=== PATIENT | female | born 1990 | race Caucasian/White ===

== ENCOUNTER 2023-05-31 19:57 | Emergency (ER) | payer OTHER ==
[2023-05-31 20:15] VITALS: RESP 18; BMI 29.8
[2023-05-31] MEDS ORDERED: MAGNESIUM 2GM/50ML STERILE WATER IVPB IVPB ONE (21:25)
[2023-05-31] MEDS ORDERED: MAGNESIUM SULF 50% (8.12 MEQ/2 ML-1 GM VIAL) IVPB ONE (21:25)
[2023-05-31] MEDS ORDERED: SODIUM CHLORIDE 0.9% 500 ML INFUS.BAG IV ONE (21:25)
[2023-05-31] MEDS ORDERED: FAMOTIDINE 20 MG/50 ML IVPB 20 MG/50 ML MG IVPB ONE ×2 (21:25→23:38)
[2023-05-31 22:05] LABS: BASO % 0.5 % (0-2.0); HEMATOCRIT 43.2 % (32.4-45.2); HEMOGLOBIN 15.2 GM/dL (10.7-15.3); LYMPH % 15.4 % (8-40); MCH 31.4 pg (25.7-33.7); MCHC 35.1 g/dl (32.0-36.0); MEAN CELL VOLUME 89.4 fl (80-96); MEAN PLT VOLUME 8.1 fl (7.5-11.1); MONO % 4.6 % (3.8-10.2); NEUT % 79.5 % (42.8-82.8); PLATELET COUNT 310 10^3/uL (134-434); RBC 4.83 M/mm3 (3.60-5.2); WHITE BLOOD COUNT 10.6 K/mm3 (4.0-10.0)
[2023-05-31 22:15] LABS: POTASSIUM 3.7 mmol/L (3.5-5.1)
[2023-05-31] MEDS ORDERED: MAGNESIUM SULFATE IN WATER 2 GM/50 ML IVPB IVPB ONE (22:15)
[2023-05-31 22:17] LABS: CALCIUM 9.9 mg/dL (8.5-10.1)
[2023-05-31 22:19] LABS: ALBUMIN 4.5 g/dl (3.4-5.0); BLOOD UREA NITROGEN 15.6 mg/dL (7-18)
[2023-05-31 22:20] LABS: CREATININE 1.1 mg/dL (0.55-1.3)
[2023-05-31 22:22] LABS: BILIRUBIN,TOTAL 1.3 mg/dL (0.2-1); TOT PROT 8.4 g/dl (6.4-8.2)
[2023-05-31] MEDS ORDERED: KETOROLAC TROMETHAMINE 30 MG/1 ML VIAL IVPUSH ONE (22:43)
[2023-05-31] MEDS ORDERED: KETOROLAC TROMETHAMINE 15 MG/ML VIAL ONE ×2 (23:08→23:09)
[2023-05-31 23:42] LABS: HCG,QUALITATIVE URINE Negative
[2023-05-31 23:59] LABS: EPI CELLS >36 /uL (0-25.1); HYALINE CASTS 4 /uL (0-3.1); URINE APPEARANCE CLOUDY; URINE BACTERIA >9,000 /uL (0-1359); URINE BILIRUBIN NEGATIVE (NEGATIVE); URINE COLOR YELLOW; URINE GLUCOSE (UA) NEGATIVE (NEGATIVE); URINE KETONE 4+ (NEGATIVE); URINE LEUK ESTERASE TRACE (NEGATIVE); URINE NITRITE POSITIVE (NEGATIVE); URINE PROTEIN 1+ (NEGATIVE); URINE RBC 17 /uL (0-23.9); URINE WBC 33 /uL (0-25.8)
[2023-06-01] MEDS ORDERED: CEPHALEXIN MONOHYDRATE 500 MG CAPSULE (UD) PO ONE (00:01)
[2023-06-01] MEDS ORDERED: SULFAMETHOXAZOLE/TRIMETHOPRIM 800MG/160MG D.S. TABLET PO ONE (00:07)
[2023-06-01] MEDS ORDERED: SULFAMETHOXAZOLE/TRIMETHOPRIM 800MG/160MG D.S. TABLET ONE (00:14)
[2023-06-01 01:01] VITALS: BP 125/78; PULSE 78; TEMP 98.1
== END 2023-06-01 00:59 | disposition home or self-care (01) ==
LOC: JER 19:57
PROC: 3E033GC Introduction of Other Therapeutic Substance into Peripheral Vein, Percutaneous Approach (ICD-10-PCS; principal; 2023-05-31)
PROC: 3E0333Z Introduction of Anti-inflammatory into Peripheral Vein, Percutaneous Approach (ICD-10-PCS; 2023-05-31)
PROC: 3E033GC Introduction of Other Therapeutic Substance into Peripheral Vein, Percutaneous Approach (ICD-10-PCS; 2023-05-31)
DX: R11.2 Nausea with vomiting, unspecified (principal); M79.10 Myalgia, unspecified site; R00.0 Tachycardia, unspecified; E86.0 Dehydration; N30.00 Acute cystitis without hematuria; R50.9 Fever, unspecified; R05.9 Cough, unspecified; R07.9 Chest pain, unspecified; R06.02 Shortness of breath; R30.0 Dysuria; Z20.822 Contact with and (suspected) exposure to COVID-19
CPT/HCPCS: 0241U-QW; 36415; 80053; 81003; 83690; 84703; 85025; 87086; 87186; 93005; 93010; 99284-25